=== PATIENT | male | born 1985 | race Caucasian/White ===

== ENCOUNTER 2017-08-19 11:39 | Emergency (ER) | payer OTHER ==
[2017-08-19 11:53] VITALS: TEMP 97.7; O2SAT 98
--- NOTE | 2017-08-19 13:34 | EDPHY ---
General - History Smoking Status: Never smoked Time Seen by Provider: 08/19/17 13:14 Narrative: CHIEF COMPLAINT: Left finger laceration HISTORY OF PRESENT ILLNESS: Patient complains of laceration to left index finger. This happened just prior to arrival. He was working with a kitchen knife. Accidentally cut the finger. Moderate bleeding. No difficulty moving the finger. Painful to do so. No numbness or tingling. No weakness. Multiple previous lacerations. No other associated complaints or modifying factors. TIME OF INJURY: Less than 1 hr prior to arrival TETANUS STATUS: Up-to-date less than 3 years ago MEDICAL/SURGICAL/SOCIAL HISTORY: Uncomplicated medical history. Lives and works here locally. REVIEW OF SYSTEMS: Ten systems reviewed and are negative unless otherwise noted in the HPI EXAMINATION General Appearance: Alert, no distress Head: normocephalic, atraumatic Cardiovascular: Symmetric radial pulses 2+. Brisk cap refill in the affected finger. Neurological: A&O, 2 point sensation intact in left index finger. Interossei strength symmetric. Skin: Warm and dry, no rash. 2.5 cm vertical laceration left index finger, volar over the distal pad. No pulsatile bleeding. No foreign body. No tendon exposure. Extremities: Tenderness of the area laceration. Full flexion extension including the superficialis and profundus. DIFFERENTIAL DIAGNOSES: Including but not limited to laceration, complex laceration, laceration with tendon injury, laceration foreign body MDM: 1:15 p.m. Laceration to the left index finger over the distal phalanx. No involvement of the tendon. No involvement of the nail. Neurovascular intact. I have administered a digital block. Proceed with irrigation closure. Tetanus up-to- date. No indication for x-ray. 2:15 p.m. Simple laceration of the left index finger. No nail involvement. No tendon injury. Neuro intact preprocedure and postprocedure with brisk cap refill. Wound care discussed. Dressing applied. Follow up with worker's compensation. Follow up here or worker's compensation in 7-10 days for suture removal. Comfortable with this plan and discharged home stable condition. PROCEDURE: Digital Block Indication: Finger laceration Consent: Verbal Location: Left index finger Anesthesia: Lidocaine 1% plain, 0.25% Marcaine plain, 5mL Description: Base of the finger was prepped. The above was infused without difficulty. Tolerated well. Good anesthesia. Complications: None PROCEDURE: Laceration repair Consent: Verbal Location: Left index finger Length of repair: 2.5 cm Complexity: Complex Layer involvement: Single Anesthesia: Digital block Irrigation: Extensive Debridement: None Procedure description: Following good anesthesia, the wound was copiously irrigated. Wound bed was explored with a sterile glove, and there is no foreign body noted. No tendon injury. Wound borders were approximated well with good hemostasis. Tolerated well without complication. Suture/Staple material: 5-0 Ethilon, 4 simple interrupted sutures Wound care: Routine as discussed Suture/Staple removal: 7-10 Days SUPERVISION: This patient was independently evaluated without direct involvement of or examination by the attending physician. ED Precautions: Worsening pain. Erythema, edema, cyanosis, pallor, paresthesia or anesthesia. (Marcos Tinajero) Medical Decision Making: I did not see this patient while he was in the emergency department. However his care was discussed with the PA while the patient was in the department. I agree with treatment plan and management (Lencho Pérez) - Objective Vital Signs: Initial Vital Signs Temperature (C) 36.5 C 08/19/17 11:45 Heart Rate 71 08/19/17 11:45 Respiratory Rate 16 08/19/17 11:45 Blood Pressure 113/82 H 08/19/17 11:45 O2 Sat (%) 98 08/19/17 11:45 Allergies/Adverse Reactions: No Known Allergies Allergy (Unverified 08/19/17 11:51) Home Medications: Medication Instructions Recorded NK [No Known Home Meds] 08/19/17 Departure - Departure Disposition: Home, Routine, Self-Care Clinical Impression: Laceration of index finger of left hand without complication Qualifiers: Encounter type: initial encounter Qualified Code(s): S61.211A - Laceration without foreign body of left index finger without damage to nail, initial encounter Condition: Good Instructions: Care For Your Stitches (DC), Laceration (ED) Additional Instructions: 1. Daily wound care as discussed 2. Follow up with worker's compensation [facility] 3. Suture removal in this emergency department in 7-10 days Referrals: Physician,Emergency Dept, MD [Medical Doctor] - As per Instructions (suture removal in 7-10 days) Stand Alone Forms: Work Comp Follow Up
[2017-08-19 14:23] VITALS: BP 110/84; PULSE 64; RESP 18
== END 2017-08-19 14:23 | disposition home or self-care (01) ==
PROC: 0HQGXZZ Repair Left Hand Skin, External Approach (ICD-10-PCS; principal; 2017-08-19)
DX: S61.211A Laceration without foreign body of left index finger without damage to nail, initial encounter (principal); W26.0XXA Contact with knife, initial encounter